=== PATIENT | male | born 1990 | race Caucasian/White ===

== ENCOUNTER 2025-05-23 18:03 | Emergency (ER) | payer OTHER, SELFPAY ==
[2025-05-23 18:22] VITALS: BP 152/66; PULSE 97; RESP 16; TEMP 36.9; O2SAT 95; BMI 25.0
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
== END 2025-05-23 22:15 | disposition left against medical advice (07) ==
LOC: HO.ED 22:11
PROVIDERS: Emergency Provider Emergency Medicine
DX: H11.31 Conjunctival hemorrhage, right eye (principal); H57.11 Ocular pain, right eye; H53.8 Other visual disturbances
CPT/HCPCS: 99281